=== PATIENT | female | born 1950 | race Caucasian/White ===

== ENCOUNTER 2018-08-05 07:31 | Day surgery (SDC) | payer MEDICARE, OTHER ==
[~2018-08-05] VITALS: Ht 170.2 cm; Wt 116.6 kg
[~2018-08-05 07:31] MED LIST: CARDIZEM CD120 MG PO; CARTIA XT120 MG PO; CARVEDILOL6.25 MG PO; LISINOPRIL-HCT1 EACH PO; PREMARIN42.5 GM VAGINAL; SULFAMETHOXAZO1 EAC1 PO
[2018-08-05] MEDS ORDERED: TOPROL XL50 MG PO (07:54)
[2018-08-05] MEDS ORDERED: VERAPAMIL ER240 MG PO (07:55)
[2018-08-05] MEDS ORDERED: LIPITOR10 MG PO (07:56)
[2018-08-05] MEDS ORDERED: CORAL CALCIUM1 EACH PO (07:57)
[2018-08-05] MEDS ORDERED: INDAPAMIDE1.25 MG PO (07:58)
[2018-08-05] MEDS ORDERED: VITAMIN D1000 UNI1 PO (07:58)
[2018-08-05] MEDS ORDERED: LISINOPRIL20 MG PO (07:59)
[2018-08-05] MEDS ORDERED: ASPIR-LOW81 MG PO (08:21)
--- NOTE | 2018-08-05 10:11 | NUR ---
08/05/18 1011 [address]ess SN 1003- PT ARRIVES TO PACU. LYING ON LEFT LATERAL SIDE. DENIES ANY PAIN, NAUSEA, AND DIZZINESS. 02 SAT MID TO HIGH 90'S ON 3 LITERS NC. RESPIRATIONS EVEN AND UNLABORED. 1004- O2 TURNED OFF, PT TOLERATING WELL. 02 SAT LOW TO MIS 90'S. RESPIRATIONS EVEN AND UNLABORED.
--- NOTE | 2018-08-06 06:17 | OR ---
[facility] [address] [place], [place] [address] Signed DATE OF OPERATION: 08/05/2018 SURGEON: Margarito Thompson MD PREOPERATIVE DIAGNOSES: 1. Rectal bleeding. 2. Rectal and/or anal pain and pressure. 3. Constipation, on verapamil. POSTOPERATIVE DIAGNOSIS: Minimal internal hemorrhoid tissue. PROCEDURE: Colonoscopy without biopsy. ESTIMATED BLOOD LOSS: None. INDICATIONS: Dakota is a 68-year-old female, asked to see me for colonoscopy. She has been on verapamil because of her history of supraventricular tachycardia. Of course, she developed constipation. She now sees some intermittent rectal bleeding along with some pain and fullness around the anal canal and/or rectum. She has no family history of colon cancer or polyps. She had a negative colonoscopy back in 2005. Given her current situation, she was asked to see me for followup colonoscopy. I gave her a pamphlet in the office on colonoscopy and we reviewed the nature of the test along with the risks including, but not limited to gas bloating, crampy abdominal pain, bleeding, perforation, requiring surgery, and missed diagnosis. We also discussed the need for IV conscious sedation. She had expressed understanding and wished to proceed. DESCRIPTION OF PROCEDURE: Dakota was taken into our endoscopy suite and placed in the left lateral decubitus position. She was given 4 mg of Versed and 100 mcg of fentanyl to cover the case. A digital rectal exam was performed and this was unremarkable. We saw no external hemorrhoids. She has good sphincter tone. No masses. The adult colonoscope was introduced and advanced all around into the cecum under direct visualization of camera without difficulty. Her prep was quite good. The scope was then slowly withdrawn. We could easily see the appendiceal orifice and the ileocecal valve. We took pictures throughout for photodocumentation. We saw no pathology throughout her entire colon or rectum. No polyps and no diverticulosis. The rectum was unremarkable. Upon Electronically Signed By: MARGARITO THOMPSON MD 08/06/18 0617 PATIENT NAME: DAKOTA INGRAM OPERATIVE REPORT DATE OF : 48 REPORT #: [id number] PHYSICIAN: MARGARITO THOMPSON MD PCP: MELECIO VILLELA MD REPORT IS CONFIDENTIAL AND NOT TO BE RELEASED WITHOUT AUTHORIZATION [address] [address] Signed retroflexion of the scope, she has very minimal routine internal hemorrhoid tissue. After this, the gas was suctioned out and colonoscope removed. Dakota tolerated the procedure quite well. RECOMMENDATIONS: Dakota can return in 10 years for repeat colonoscopy. If the constipation is a significant issue, she might consider changing her verapamil per her providers. MD ALFONZO Garner/JA /[id number] cc: MD Margarito Garrido MD Mary Carnaghan, FNP Copies: MARGARITO THOMPSON MD, MARY FNP ~ Electronically Signed By: MARGARITO THOMPSON MD 08/06/18 0617 PATIENT NAME: DAKOTA INGRAM JAMES OPERATIVE REPORT DATE OF : 48 REPORT #: [id number] PHYSICIAN: MARGARITO THOMPSON MD PCP: MELECIO VILLELA MD REPORT IS CONFIDENTIAL AND NOT TO BE RELEASED WITHOUT AUTHORIZATION
== END 2018-08-05 10:45 | disposition home or self-care (01) ==
LOC: OPS 07:31 → DS 07:31 → OPS 09:00
PROVIDERS: Colon & Rectal Surgery
PROC: 0DJD8ZZ Inspection of Lower Intestinal Tract, Via Natural or Artificial Opening Endoscopic (ICD-10-PCS; principal; 2018-08-05 09:00)
DX: K64.8 Other hemorrhoids (principal); K59.00 Constipation, unspecified; I10 Essential (primary) hypertension; E78.1 Pure hyperglyceridemia; Z98.890 Other specified postprocedural states; Z87.891 Personal history of nicotine dependence; Z88.0 Allergy status to penicillin; Z88.1 Allergy status to other antibiotic agents; Z79.82 Long term (current) use of aspirin; Z79.899 Other long term (current) drug therapy
CPT/HCPCS: 99153; G0500; J2250; J3010; J7120

== ENCOUNTER 2023-04-21 10:24 | Emergency (ER) | payer MEDICARE, OTHER ==
[~2023-04-21] VITALS: Ht 170.2 cm; Wt 125.0 kg
[~2023-04-21 10:24] MED LIST changes: +ASPIR-LOW81 MG PO; +CORAL CALCIUM1 EACH PO; +INDAPAMIDE1.25 MG PO; +LIPITOR10 MG PO; +LISINOPRIL20 MG PO; +TOPROL XL50 MG PO; +VERAPAMIL ER240 MG PO; +VITAMIN D1000 UNI1 PO
[2023-04-21] MEDS ORDERED: TORSEMIDE20 MG PO (10:47)
[2023-04-21] MEDS ORDERED: FINASTERIDE5 MG PO (10:48)
[2023-04-21] MEDS ORDERED: MAGNESIUM400 MG PO (10:49)
[2023-04-21] MEDS ORDERED: CLARITIN10 M2 PO (10:49)
[2023-04-21] MEDS ORDERED: CEPHALEXIN500 M1 PO (13:31)
[2023-04-21 13:49] VITALS: BP 151/75
== END 2023-04-21 13:49 | disposition home or self-care (01) ==
LOC: ED 10:24
DX: S80.11XA Contusion of right lower leg, initial encounter (principal); I10 Essential (primary) hypertension; W31.89XA Contact with other specified machinery, initial encounter; Y93.A1 Activity, exercise machines primarily for cardiorespiratory conditioning; Z88.0 Allergy status to penicillin; Z88.1 Allergy status to other antibiotic agents; Z88.2 Allergy status to sulfonamides; Z87.891 Personal history of nicotine dependence; Z79.82 Long term (current) use of aspirin; Z79.899 Other long term (current) drug therapy
CPT/HCPCS: 73590; 93971; 99284-25

== ENCOUNTER 2024-02-19 11:44 | Emergency (ER) | payer MEDICARE, OTHER ==
[~2024-02-19] VITALS: Ht 170.2 cm; Wt 133.0 kg
[~2024-02-19 11:44] MED LIST changes: +CEPHALEXIN500 M1 PO; +CLARITIN10 M2 PO; +FINASTERIDE5 MG PO; +MAGNESIUM400 MG PO; +TORSEMIDE20 MG PO
[2024-02-19] MEDS ORDERED: POTASSIUM CHLO20 ME1 PO (12:01)
[2024-02-19] MEDS ORDERED: METOPROLOL SUC100 MG PO (12:01)
[2024-02-19] MEDS ORDERED: ATORVASTATIN CA20 MG PO (12:01)
[2024-02-19] MEDS ORDERED: LISINOPRIL10 MG PO (12:02)
[2024-02-19 12:06] LABS: BASOPHILS 0.7 % (0-2); EOSINOPHILS 1.9 % (0-6); HEMATOCRIT 42.6 % (35.0-50.0); HEMOGLOBIN 14.3 g/dL (12.0-18.0); LYMPHOCYTES 37.6 % (24-44); MCH 29.9 (27-36); MCHC 33.6 g/dl (30-36); MONOCYTES 9.3 % (0-12); NEUTROPHILS 50.5 % (39-80); PLATELET COUNT 300 K/uL (140-440); RBC 4.79 M/ul (4.3-5.7); RDW 14.9 (10.5-15.0)
[2024-02-19] MEDS ORDERED: ADENOSINE 3 MG/ML VIAL IV ONE (12:15)
[2024-02-19] MEDS ORDERED: MAGNESIUM SULFATE 2 GM/50 ML BAG IV ONE (12:15)
[2024-02-19 12:24] LABS: ALBUMIN 3.6 g/dL (3.4-5.0); ALBUMIN/GLOBULIN RATIO 0.88 (1.1-2.4); BILIRUBIN, TOTAL 0.5 ng/dL (0.2-1.0); BUN/CREATININE RATIO 22.22 (6.0-28.6); CALCIUM 9.3 mg/dL (8.5-10.1); CREATININE, SERUM 0.81 mg/dL (0.55-1.02); MAGNESIUM 1.8 mg/dL (1.8-2.4); PROTEIN, TOTAL 7.7 g/dL (6.4-8.2)
[2024-02-19] MEDS ORDERED: dilTIAZem HCL 25 MG/5 ML VIAL IV ONE (12:45)
[2024-02-19 15:27] VITALS: BP 127/66
--- NOTE | 2024-02-21 20:46 | EKG ---
[facility] [address] [facility] [place] [address] Signed Possible monomorphic ventricular tachycardia Abnormal ECG No previous ECGs available Confirmed by Arlet Caldwell MD ([id number]) on 02/21/2024 8:46:24 PM Electronically Signed By: ARLET CALDWELL DO 02/21/242045 PATIENT NAME: DAKOTA INGRAM Electrocardiogram DATE OF : 48 PHYSICIAN: ARLET CALDWELL DO REPORT #: [id number] REPORT IS CONFIDENTIAL AND NOT TO BE RELEASED WITHOUT AUTHORIZATION
--- NOTE | 2024-02-21 20:47 | EKG ---
[facility] [address] [place] [address] Signed Normal sinus rhythm Left axis deviation Moderate voltage criteria for LVH, may be normal variant ( R in aVL , [place] product ) Abnormal ECG When compared with ECG of 19-FEB-2024 11:57, (Unconfirmed) Vent. rate has decreased BY 89 BPM Right bundle branch block is no longer present Confirmed by Arlet Caldwell MD ([id number]) on 02/21/2024 8:46:39 PM Electronically Signed By: ARLET CALDWELL DO 02/21/242046 PATIENT NAME: DAKOTA INGRAM Electrocardiogram DATE OF : 48 PHYSICIAN: ARLET CALDWELL DO REPORT #: [id number] REPORT IS CONFIDENTIAL AND NOT TO BE RELEASED WITHOUT AUTHORIZATION
== END 2024-02-19 15:27 | disposition home or self-care (01) ==
LOC: ED 11:44
PROVIDERS: Emergency Medicine
DX: I47.20 Ventricular tachycardia, unspecified (principal); I10 Essential (primary) hypertension; E78.5 Hyperlipidemia, unspecified; Z87.891 Personal history of nicotine dependence; Z88.2 Allergy status to sulfonamides; Z88.1 Allergy status to other antibiotic agents; Z88.0 Allergy status to penicillin; Z79.899 Other long term (current) drug therapy
CPT/HCPCS: 36415; 71045; 80053; 83735; 83880; 84484; 85025; 93005; 93010; 93041; 96365; 96375; 99285-25; J0153; J3475